=== PATIENT | male | born 1960 | race Caucasian/White ===

== ENCOUNTER → 2018-08-13 | Outpatient (CLI) | payer OTHER ==
[~2018-08-13] MED LIST: FOSI40TA PO; LISI-374 PO; METF10002 PO; METF750T25 PO; METO25TA93 PO; RIVA20TA PO; ROSU20TA23 PO; SERT-173 PO
[2018-08-13 09:59] LABS: PLATELET COUNT, AUTOMATED 221 K/uL (150-450)
[2018-08-13 10:35] LABS: LDL CHOLESTEROL 48 mg/dl
== END ==
LOC: LAB 09:26
PROVIDERS: ATTEND Internal Medicine
DX: Z12.5 Encounter for screening for malignant neoplasm of prostate (principal); I10 Essential (primary) hypertension; E11.9 Type 2 diabetes mellitus without complications; E78.5 Hyperlipidemia, unspecified
CPT/HCPCS: 36415; 81001; 82040; 82043; 82247; 82310; 82374; 82435; 82465; 82565; 82947; 83036; 83718; 84075; 84132; 84153; 84155; 84295; 84443; 84450; 84460; 84478; 84520; 85025